=== PATIENT | female | born 1960 | race Caucasian/White ===

== ENCOUNTER → 2024-12-12 | Outpatient (CLI) | payer MEDICAID, SELFPAY ==
--- NOTE | 2024-12-12 12:00 | XR_ITS ---
Exam: MRI knee without contrast, left Date and time of exam: December 12, 2024, 1230 hours INDICATIONS: Burning sensation and pain joint clicking swelling instability left knee 3 months Technique: Multiple axial, coronal, and sagittal sections on the knee have been obtained. T2-Weighted sagittal, fat-suppressed images, TR 3,500, TE 62, T2 weighted coronal fat-saturated images, TR 3,500, TE 62 Proton density sagittal sections, TR 1800, TE 31. T-1 weighted coronal images, TR 524, TE 13.0 Findings: Medial meniscus anterior horn truncation inner margin. Medial meniscus, body meniscocapsular separation. Posterior horn medial meniscus meniscocapsular separation. Lateral meniscus anterior horn is replaced by isointense signal Lateral meniscus, body extruded from the joint space Posterior horn lateral meniscus truncation inner margin Anterior cruciate ligament absent Posterior cruciate ligament moderate strain Knee effusion is moderate. Chronic subluxation patella laterally 22 mm There is no evidence of tendinosis. Inflammatory change or fracture of Hoffa's fat pad is not seen. Medial patellar facet demonstrates severe thinning. Lateral patellar facet cartilage demonstrates severe thinning. Trochlear cartilage demonstrates severe thinning. Marrow signal adequate. Medial collateral ligament appears intact. Illiotibial band and fibular collateral ligament are intact. Biceps femoris tendons appear intact. Medial femoral condylar articular cartilage demonstrates severe thinning. Lateral femoral condylar articular cartilage demonstrates severe thinning. Tibial plateau cartilage demonstrates severe thinning. Impression: Medial and lateral meniscus tears Meniscocapsular separation body and posterior horn medial meniscus Absent anterior cruciate ligament Moderate strain posterior cruciate ligament Severe tricompartment joint narrowing
== END | disposition home or self-care (01) ==
LOC: SMRI 11:35
PROVIDERS: PCP Physician Assistant; Referring Provider Physician Assistant; Visit Provider Physician Assistant
DX: S83.282A Other tear of lateral meniscus, current injury, left knee, initial encounter (principal); S83.242A Other tear of medial meniscus, current injury, left knee, initial encounter; S89.82XA Other specified injuries of left lower leg, initial encounter; X58.XXXA Exposure to other specified factors, initial encounter
CPT/HCPCS: 73721